=== PATIENT | female | born 1950 | race Caucasian/White ===

== ENCOUNTER 2017-09-26 07:11 | Observation (INO) | payer BC, MEDICARE ==
[~2017-09-26] VITALS: Ht 172.7 cm; Wt 60.0 kg
[~2017-09-26 07:11] MED LIST: CITA-48 PO; DICL75 PO; FOSA70TA PO; ROBA750T3 PO; TIZA4 PO; TRAM50TA PO; XANA0.5T PO
[2017-09-26] MEDS ORDERED: IOHEXOL 350 MG/ML 10 ML VIAL (for RAD DIAG) IVCONTRAST ONE (07:12)
[2017-09-26 07:17] VITALS: BP 156/82; PULSE 100; RESP 16; TEMP 97.5; O2SAT 100
[2017-09-26] MEDS ORDERED: SODIUM CHLOR 0.9% 1000 ML INJ 1,000 ML IV SCH ×2 (07:25→09:30)
[2017-09-26] MEDS ORDERED: SODIUM CHLORIDE 0.9% FLUSH 10 ML FLUSH IV FLUSH PRN ×2 (07:30→15:45)
--- NOTE | 2017-09-26 07:39 | PD ---
HPI Chief Complaint: GI Complaint Time Seen by Provider: 07:24 Travel History International Travel<30 days: No Contact w/Intl Traveler<30days: No Traveled to known affect area: No History of Present Illness HPI This is a 67-year-old female with a history of anxiety disorder, chronic pain, recent UTI, presents here with complaints of dizziness and abdominal swelling and pain. Patient states that over the last 5 days she has noted her belly to be swelling. Patient also reports that she has not had a bowel movement in several days. She denies any fevers, chills. She denies any vomiting. She denies any decreased urine output. She reports that she has been urinating a lot because she was told to drink lots of fluid. There are no other complaints at the time of my examination. PFSH Past Medical History Depression: Yes Diminished Hearing: No Past Surgical History Gynecologic Surgery: Yes (left ovary removal) Tonsillectomy: Yes Social History Alcohol Use: Yes (rarely) Tobacco Use: Yes (1 ppd) Substance Use: No Allergies-Medications (Allergen,Severity, Reaction): Coded Allergies: cephalexin (Verified Allergy, Intermediate, HIVES, 09/26/17) ciprofloxacin (Verified Adverse Reaction, Intermediate, hepatotoxicity, ) Reported Meds & Prescriptions Reported Meds & Active Scripts Active Reported 3 Day Vaginal (Clotrimazole Vaginal) 2% Cream 1 Appl VAGINAL HS Ondansetron (Ondansetron HCl) 8 Mg Tab 8 Mg PO TID Flexeril (Cyclobenzaprine HCl) 10 Mg Tab 10 Mg PO TID Wellbutrin SR 12 HR (Bupropion HCl) 150 Mg Tab 150 Mg PO Q12HR Sumatriptan (Sumatriptan Succinate) 100 Mg Tab 100 Mg PO ONCE PRN If a satisfactory response has not been obtained at 2 hours, a second dose may be administered Alendronate (Alendronate Sodium) 70 Mg Tab 70 Mg PO Q7D Triamcinolone Topical (Triamcinolone Acetonide) 0.1 % Oint 1 Applic TOPICAL BID Review of Systems Except as stated in HPI: all other systems reviewed are Neg General / Constitutional: No: Fever, Chills HENT: Positive: Lightheadedness, No: Headaches Cardiovascular: No: Chest Pain or Discomfort, Palpitations Respiratory: No: Cough, Shortness of Breath Gastrointestinal: Positive: Abdominal Pain, Constipation, No: Nausea, Vomiting , Diarrhea Genitourinary: Positive: Other, No: Frequency, Dysuria Musculoskeletal: No: Weakness, Pain Neurologic: Positive: Dizziness, No: Weakness, Headache, Sensory Disturbance Psychiatric: Positive: Anxiety Physical Exam Narrative GENERAL: Well-developed well-nourished female in no acute respiratory distress. Patient does appear to be pale. SKIN: Focused skin assessment warm/dry. HEAD: Atraumatic. Normocephalic. EYES: No scleral icterus. No injection or drainage. ENT: No nasal bleeding or discharge. Mucous membranes pink and moist. NECK: Trachea midline. No JVD. Supple. CARDIOVASCULAR: Regular rate and rhythm. No murmur appreciated. RESPIRATORY: No accessory muscle use. Clear to auscultation. Breath sounds equal bilaterally. GASTROINTESTINAL: Abdomen soft, slightly distended. There is no rebound or guarding. MUSCULOSKELETAL: No obvious deformities. No clubbing. No cyanosis. No edema. NEUROLOGICAL: Awake and alert. No obvious cranial nerve deficits. Motor grossly within normal limits. Normal speech. PSYCHIATRIC: Appropriate mood and affect; insight and judgment normal. Data Data Last Documented VS Orders Orders Complete Blood Count With Diff (09/26/17 07:25) Comprehensive Metabolic Panel (09/26/17 07:25) Lipase (09/26/17 07:25) Urinalysis - C+S If Indicated (09/26/17 07:25) Iv Access Insert/Monitor (09/26/17 07:25) Ecg Monitoring (09/26/17 07:25) Oximetry (09/26/17 07:25) Sodium Chlor 0.9% 1000 Ml Inj (Ns 1000 M (09/26/17 07:25) Sodium Chloride 0.9% Flush (Ns Flush) (09/26/17 07:30) Sodium Chlorid 0.9% 500 Ml Inj (Ns 500 M (09/26/17 09:30) Tramadol (Ultram) (09/26/17 09:30) Cath For Specimen (09/26/17 11:06) Us Abdomen Gallbladder (09/26/17 11:13) Ct Abd/Pel W Iv Contrast(Rout) (09/26/17 12:11) Oral Contrast - Adult (09/26/17 12:19) Diatrizoate Liq ( Gastroview Liq) (09/26/17 12:44) Iohexol 350 Inj (Omnipaque 350 Inj) (09/26/17 07:12) Morphine Inj (Morphine Inj) (09/26/17 15:45) Levofloxacin 500 Mg Premix Inj (Levaquin (09/26/17 15:45) Metronidazole 500 Mg Inj (Flagyl 500 Mg (09/26/17 15:45) Place In Observation (09/26/17 ) Vital Signs (Adult) Q4H (09/26/17 15:45) Activity Oob Ad Kaitlin (09/26/17 15:45) Sodium Chloride 0.9% Flush (Ns Flush) (09/26/17 15:45) Sodium Chloride 0.9% Flush (Ns Flush) (09/26/17 21:00) Basic Metabolic Panel (Bmp) (09/27/17 06:00) Comprehensive Metabolic Panel (09/27/17 06:00) Enoxaparin Inj (Lovenox Inj) (09/26/17 16:00) Naloxone Inj (Narcan Inj) (09/26/17 15:45) Sennosides (Senokot) (09/26/17 15:45) Morphine Inj (Morphine Inj) (09/26/17 16:00) Consult Gastroenterology (09/26/17 ) Ondansetron Odt (Zofran Odt) (09/26/17 15:45) (Hub Use Only)Inp Phy Cons/Ref (09/26/17 ) Morphine Inj (Morphine Inj) (09/26/17 16:15) Metronidazole 500 Mg Inj (Flagyl 500 Mg (09/27/17 00:00) Levofloxacin 750 Mg Premix Inj (Levaquin (09/27/17 15:00) Admit Order (Ed Use Only) (09/26/17 16:45) Labs Laboratory Tests Test 09/26/17 08:26 09/26/17 10:31 09/26/17 11:00 White Blood Count 11.0 TH/MM3 Red Blood Count 4.33 MIL/MM3 Hemoglobin 13.7 GM/DL Hematocrit 39.0 % Mean Corpuscular Volume 90.1 FL Mean Corpuscular Hemoglobin 31.6 PG Mean Corpuscular Hemoglobin Concent 35.1 % Red Cell Distribution Width 13.6 % Platelet Count 430 TH/MM3 Mean Platelet Volume 7.2 FL Neutrophils (%) (Auto) 68.3 % Lymphocytes (%) (Auto) 12.5 % Monocytes (%) (Auto) 9.9 % Eosinophils (%) (Auto) 8.5 % Basophils (%) (Auto) 0.8 % Neutrophils # (Auto) 7.5 TH/MM3 Lymphocytes # (Auto) 1.4 TH/MM3 Monocytes # (Auto) 1.1 TH/MM3 Eosinophils # (Auto) 0.9 TH/MM3 Basophils # (Auto) 0.1 TH/MM3 CBC Comment DIFF FINAL Differential Comment Blood Urea Nitrogen 11 MG/DL Creatinine 0.50 MG/DL Random Glucose 87 MG/DL Total Protein 6.6 GM/DL Albumin 2.8 GM/DL Calcium Level 8.4 MG/DL Alkaline Phosphatase 565 U/L Aspartate Amino Transf (AST/SGOT) 102 U/L Alanine Aminotransferase (ALT/SGPT) 161 U/L Total Bilirubin 2.0 MG/DL Sodium Level 138 MEQ/L Potassium Level 3.7 MEQ/L Chloride Level 106 MEQ/L Carbon Dioxide Level 22.9 MEQ/L Anion Gap 9 MEQ/L Estimat Glomerular Filtration Rate 124 ML/MIN Iron Level 63 MCG/DL Total Iron Binding Capacity 336 MCG/DL Percent Iron Saturation 18.8 % Ferritin 264 NG/ML Lipase 74 U/L Urine Color YELLOW Urine Turbidity CLEAR Urine pH 6.0 Urine Specific [place] 1.013 Urine Protein NEG mg/dL Urine Glucose (UA) NEG mg/dL Urine Ketones TRACE mg/dL Urine Occult Blood NEG Urine Nitrite NEG Urine Bilirubin NEG Urine Urobilinogen LESS THAN 2.0 MG/DL Urine Leukocyte Esterase NEG Urine RBC LESS THAN 1 /hpf Urine WBC 1 /hpf Urine Squamous Epithelial Cells <1 /hpf Urine Mucus FEW /lpf Microscopic Urinalysis Comment CULT NOT INDICATED MDM Medical Decision Making Medical Screen Exam Complete: Yes Emergency Medical Condition: Yes Differential Diagnosis Constipation versus diverticulitis versus metabolic derangement Narrative Course 67-year-old female with a history of chronic back pain, recent UTI, presents today with complaints of severe abdominal pain. Patient also reports nausea vomiting. The patient is received 2 doses of pain medication and nausea medication. She is still having severe pain. CT scan shows hepatic steatosis and duodenitis. Patient's been started on Levaquin and Flagyl. Given the fact that she has intractable pain she will be admitted under observation. Case was discussed with the admitting physician. She will be made n.p.o. until further discussion with GI. She would likely need an upper endoscopy. Diagnosis Primary Impression: Intractable abdominal pain Additional Impressions: Elevated LFTs Hepatic steatosis Admitting Information Admitting Physician Requests: Observation Scripts Pantoprazole (Pantoprazole) 40 Mg Tab 40 MG PO DAILY for esophagitis/gastritis for 30 Days, #30 TAB Prov: Maddie Reno PA-C 09/29/17 Rob Patterson MD Sep 26, 2017 07:39
[2017-09-26] MEDS ORDERED: CIPR-9 PO (08:05)
[2017-09-26] MEDS ORDERED: ONDA8TAB7 PO (08:05)
[2017-09-26] MEDS ORDERED: LOMO2.5T PO (08:05)
[2017-09-26] MEDS ORDERED: ALEN1TAB48 PO (08:05)
[2017-09-26] MEDS ORDERED: BUPR150CR PO (08:05)
[2017-09-26] MEDS ORDERED: DIPH25CA PO (08:05)
[2017-09-26] MEDS ORDERED: OMEP20TA93 PO (08:05)
[2017-09-26] MEDS ORDERED: CYCL10TA PO (08:05)
[2017-09-26] MEDS ORDERED: TRIAM.1%T TOPICAL (08:05)
[2017-09-26] MEDS ORDERED: CLOT2CRE VAGINAL (08:05)
[2017-09-26] MEDS ORDERED: SUMA100T2 PO (08:05)
[2017-09-26 08:29] VITALS: BP 135/72; PULSE 88; RESP 16; O2SAT 98
[2017-09-26 08:53] LABS: AUTOMATED NEUTROPHIL # 7.5 TH/MM3 (1.8-7.7); BASOPHIL # 0.1 TH/MM3 (0-0.2); BASOPHIL % 0.8 % (0.0-2.0); EOSINOPHIL # 0.9 TH/MM3 (0-0.4); EOSINOPHIL % 8.5 % (0.0-4.0); HEMOGLOBIN 13.7 GM/DL (11.6-15.3); LYMPH % 12.5 % (9.0-44.0); LYMPHOCYTE # 1.4 TH/MM3 (1.0-4.8); MEAN CELL VOLUME 90.1 FL (80.0-100.0); MEAN CORPUSCULAR HEMOGLOBIN 31.6 PG (27.0-34.0); MEAN CORPUSCULAR HGB CONC 35.1 % (32.0-36.0); MEAN PLATELET VOLUME 7.2 FL (7.0-11.0); MONO % 9.9 % (0.0-8.0); MONOCYTE # 1.1 TH/MM3 (0-0.9); NEUT % 68.3 % (16.0-70.0); PLATELET COUNT 430 TH/MM3 (150-450); RED BLOOD COUNT 4.33 MIL/MM3 (4.00-5.30); RED CELL DISTRIBUTION WIDTH 13.6 % (11.6-17.2)
[2017-09-26] MEDS ORDERED: SODIUM CHLORID 0.9% 500 ML INJ 500 ML IV ONE (09:30)
[2017-09-26] MEDS ORDERED: traMADol HCL 50 MG TAB PO ONE (09:30)
[2017-09-26 11:01] LABS: ALKALINE PHOSPHATASE 565 U/L (45-117); ALT (GPT) 161 U/L (10-53); TOTAL PROTEIN 6.6 GM/DL (6.4-8.2)
[2017-09-26 11:05] LABS: ALBUMIN 2.8 GM/DL (3.4-5.0); AST (GOT) 102 U/L (15-37); BICARBONATE 22.9 MEQ/L (21.0-32.0); BLOOD UREA NITROGEN 11 MG/DL (7-18); CALCIUM 8.4 MG/DL (8.5-10.1); CHLORIDE 106 MEQ/L (98-107); GLOMERULAR FILTRATION RATE 124 ML/MIN (>89); GLUCOSE,RANDOM 87 MG/DL (74-106); SODIUM (NA) 138 MEQ/L (136-145)
--- NOTE | 2017-09-26 11:55 | RADRPT ---
EXAM DATE: 09/26/2017 11:49 AM EDT AGE/SEX: 67 years / Female INDICATIONS: Abdominal pain and swelling with nausea. CLINICAL DATA: This is the patient's initial encounter. Patient reports that signs and/or symptoms h ave been present for 4 - 6 days and indicates a pain score of 8/10. MEDICAL/SURGICAL HISTORY: Gastroesophageal reflux disease. Hysterectomy. Tonsillectomy. left ovary removed. UTI. COMPARISON: No prior exams available for comparison. MEASUREMENTS (cm x cm x cm): Liver:__ 16.3 cm length Common Bile Duct:__ 5mm FINDINGS: Liver: Normal echotexture without focal lesion or ductal dilatation. Portal Vein: Normal flow is seen in portal vein. Common Duct: Common bile duct within the normal range in terms of size. No filling defects. Gallbladder: Demonstrates no wall thickening or pericholecystic fluid. No stones visualized. Pancreas: The pancreatic duct is out of the range of normal in terms of size. It reaches a maximum d iameter 4 mm. The pancreas is otherwise unremarkable. No stone or obstructing mass observed. Right Kidney: The right kidney is normal in size and shape. It measures 11.5 x 4.6 x 4.6 cm. No mass or hydronephrosis. Other: None. CONCLUSION: 1. Mild dilatation of the pancreatic duct measuring 4 mm. No obstructing mass or stone observed. Con open claims representative further anatomical evaluation either utilizing CT scan or MRI. Electronically signed by: Horacio Gould MD 09/26/2017 11:53 AM EDT
[2017-09-26 12:05] LABS: BILIRUBIN, URINE NEG (NEG); BLOOD, URINE NEG (NEG); GLUCOSE,URINE NEG (NEG); KETONE, URINE TRACE mg/dL (NEG); MUCUS URINE FEW /lpf (OCC); NITRITE,URINE NEG (NEG); SQUAMOUS EPITHELIAL CELL URINE <1 /hpf (0-5); URINE COLOR YELLOW (YELLW/STRAW); URINE LEUKOCYTE ESTERASE NEG (NEG)
[2017-09-26 12:42] VITALS: BP 119/67; PULSE 94; RESP 18; O2SAT 98
[2017-09-26] MEDS ORDERED: DIATRIZOATE MEGLUM/DIATRIZOATE SOD 9 ML CUP ONE (12:44)
--- NOTE | 2017-09-26 14:43 | RADRPT ---
EXAM DATE: 09/26/2017 2:08 PM EDT AGE/SEX: 67 years / Female INDICATIONS: Abdomen pain and swelling with nausea CLINICAL DATA: This is the patient's initial encounter. Patient reports that signs and symptoms have been present for 4 - 6 days and indicates a pain score of 4/10. MEDICAL/SURGICAL HISTORY: None. . left ovary ORAL CONTRAST: Prescribed oral contrast ingested. RADIATION DOSE: 5.30 CTDI (mGy) COMPARISON: No prior exams available for comparison. TECHNIQUE: Multiple contiguous axial images were obtained through the abdomen and pelvis following b olus infusion of 95 ml Omnipaque 350 (iohexol) nonionic water-soluble contrast as a single exam dos e. Prescribed oral contrast ingested. Using automated exposure control and adjustment of the mA and/ or kV according to patient size, the radiation dose was kept as low as reasonably achievable to obtai n optimal diagnostic quality images. FINDINGS: Lower Lungs: Pronounced emphysematous changes within the lung bases bilaterally. A 6 mm nodule working second hand iorly within the right base. Small hiatal hernia.. Liver: The liver has a homogeneously low density without space-occupying lesion. There is no dilatio n of the biliary tree. Gallbladder is unremarkable. Spleen: Homogeneous density without enlargement. Pancreas: Unremarkable without mass or calcification. Kidneys: Normal in size and shape. No evidence of mass or hydronephrosis. Adrenal Glands: Unremarkable. Aorta: The aorta and proximal iliac vessels are grossly unremarkable without aneurysmal dilation. Bowel/Mesentery: The second portion of the duodenum is fluid-filled and mildly distended without wal l thickening. The remaining bowel loops are normal in caliber. No free air or free fluid. The colon i s stool-filled but normal in caliber. Abdominal Wall: Intact. Retroperitoneum: No evidence of adenopathy in the retrocrural, para-aortic, or deep pelvic regions. Bladder: Contours are smooth. Reproductive Organs: No abnormal masses or calcifications seen. Inguinal: The inguinal region is unremarkable without evidence of adenopathy. Bony Structures: Unremarkable. CONCLUSION: 1. Minimal distention of the second portion of the duodenum without wall thickening or inflammatory change. This could relate to a mild duodenitis. Otherwise, no acute abnormality. 2. Hepatic steatosis. Electronically signed by: Horacio Gould MD 09/26/2017 2:42 PM EDT
[2017-09-26] MEDS ORDERED: metroNIDAZOLE 500 MG INJ 100 ML IV ONE (15:45)
[2017-09-26] MEDS ORDERED: MORPHINE SULFATE 2 MG/ML SYRINGE IV PUSH ONE (15:45)
[2017-09-26] MEDS ORDERED: SENNOSIDES 8.6 MG TAB PO PRN (15:45)
[2017-09-26] MEDS ORDERED: ONDANSETRON ODT 4 MG TAB SL PRN (15:45)
[2017-09-26] MEDS ORDERED: NALOXONE HCL 0.4 MG/ML AMP IV PUSH PRN (15:45)
[2017-09-26] MEDS ORDERED: metroNIDAZOLE 500 MG INJ 100 ML IV SCH ×2 (16:00→16:15)
[2017-09-26] MEDS ORDERED: MORPHINE SULFATE 4 MG/ML INJ IV ONE (16:15)
[2017-09-26] MEDS: LEVOFLOXACIN 500 MG PREMIX INJ 100 ML IV ONE ×2 (16:37→16:43)
[2017-09-26] MEDS: ENOXAPARIN SODIUM 40 MG/0.4 ML SYRINGE SQ SCH (16:39)
--- NOTE | 2017-09-26 17:02 | PD.CONS ---
HPI History of Present Illness This is a 67 year old F with PMH significant for anxiety disorder, chronic pain , recent UTI who presented to the ER today with complaints of dizziness, abdominal pain and swelling. Pt reports abdominal pain began over a week ago, seemed fairly constant, generalized over entire abdomen. Symptoms were fairly manageable, but she went in to see her PCP last Tuesday when noticed her urine became very dark. Her PCP tested her urine, diagnosed her with UTI and sent her home on Ciprofloxacin. Pt reports abdominal swelling since starting Cipro also has not had a BM since starting Cipro, does reports passing flatus. Pt reports acid reflux and heartburn are well controlled with Ranitidine at bedtime, was previously on Omeprazole but has not needed this is a long time. Reports some nausea, denies emesis. Denies any unintentional weight loss. Last EGD and colonoscopy in 1999, reports indication was for Hemoccult positive stool , states normal exam except for hemorrhoids. Denies history of liver issues, new prescription medications except for Cipro previously mentioned. Takes OTC vitamins, but states none of these are new. Occasional ETOH. Smokes 1 PPD. Of note, also takes Diclofenac for pain. Denies family history significant for GI related issues. (Anne-Marie Vyas) PFSH Past Medical History Anxiety disorder Chronic pain Recent UTI Nicotine dependence Past Surgical History Tonsillectomy L ovary removal Colonoscopy EGD (Anne-Marie Vyas) Coded Allergies: cephalexin (Verified Allergy, Intermediate, HIVES, 09/26/17) Social History Smokes 1 PPD Occasional ETOH Denies illicit drug use (Anne-Marie Vyas) Review of Systems Gastrointestinal: COMPLAINS OF: Abdominal pain, Constipation, Nausea, Swelling of Abdomen, DENIES: Black stools, Bloody stools, Diarrhea, Vomiting, Difficulty Swallowing, Odynophagia, Heartburn, Hematemesis (Anne-Marie Vyas) GI Exam Vitals I&O Vital Signs Date Time Temp Pulse Resp B/P (MAP) Pulse Ox O2 Delivery O2 Flow Rate FiO2 09/26/17 12:42 94 18 119/67 (84) 98 Room Air 09/26/17 08:29 88 16 135/72 (93) 98 Room Air 09/26/17 07:52 18 09/26/17 07:17 97.5 100 16 156/82 (106) 100 I/O 09/25/17 09/25/17 09/25/17 09/26/17 09/26/17 09/26/17 07:00 15:00 23:00 07:00 15:00 23:00 Intake Total 1500 ml Output Total 500 ml Balance 1000 ml Intake IV Total 1500 ml Output Urine Total 500 ml # Voids 1 Imaging Last Impressions Abdomen/Pelvis CT 09/26/17 1211 Signed Impressions: CONCLUSION: 1. Minimal distention of the second portion of the duodenum without wall thick ening or inflammatory change. This could relate to a mild duodenitis. Otherwise , no acute abnormality. 2. Hepatic steatosis. Gall Bladder Ultrasound 09/26/17 1113 Signed Impressions: CONCLUSION: 1. Mild dilatation of the pancreatic duct measuring 4 mm. No obstructing mass or stone observed. Consider further anatomical evaluation either utilizing CT s can or MRI. Laboratory Test 09/26/17 08:26 09/26/17 10:31 09/26/17 11:00 White Blood Count 11.0 TH/MM3 Red Blood Count 4.33 MIL/MM3 Hemoglobin 13.7 GM/DL Hematocrit 39.0 % Mean Corpuscular Volume 90.1 FL Mean Corpuscular Hemoglobin 31.6 PG Mean Corpuscular Hemoglobin Concent 35.1 % Red Cell Distribution Width 13.6 % Platelet Count 430 TH/MM3 Mean Platelet Volume 7.2 FL Neutrophils (%) (Auto) 68.3 % Lymphocytes (%) (Auto) 12.5 % Monocytes (%) (Auto) 9.9 % Eosinophils (%) (Auto) 8.5 % Basophils (%) (Auto) 0.8 % Neutrophils # (Auto) 7.5 TH/MM3 Lymphocytes # (Auto) 1.4 TH/MM3 Monocytes # (Auto) 1.1 TH/MM3 Eosinophils # (Auto) 0.9 TH/MM3 Basophils # (Auto) 0.1 TH/MM3 CBC Comment DIFF FINAL Differential Comment Blood Urea Nitrogen 11 MG/DL Creatinine 0.50 MG/DL Random Glucose 87 MG/DL Total Protein 6.6 GM/DL Albumin 2.8 GM/DL Calcium Level 8.4 MG/DL Alkaline Phosphatase 565 U/L Aspartate Amino Transf (AST/SGOT) 102 U/L Alanine Aminotransferase (ALT/SGPT) 161 U/L Total Bilirubin 2.0 MG/DL Sodium Level 138 MEQ/L Potassium Level 3.7 MEQ/L Chloride Level 106 MEQ/L Carbon Dioxide Level 22.9 MEQ/L Anion Gap 9 MEQ/L Estimat Glomerular Filtration Rate 124 ML/MIN Lipase 74 U/L Urine Color YELLOW Urine Turbidity CLEAR Urine pH 6.0 Urine Specific [place] 1.013 Urine Protein NEG mg/dL Urine Glucose (UA) NEG mg/dL Urine Ketones TRACE mg/dL Urine Occult Blood NEG Urine Nitrite NEG Urine Bilirubin NEG Urine Urobilinogen LESS THAN 2.0 MG/DL Urine Leukocyte Esterase NEG Urine RBC LESS THAN 1 /hpf Urine WBC 1 /hpf Urine Squamous Epithelial Cells <1 /hpf Urine Mucus FEW /lpf Microscopic Urinalysis Comment CULT NOT INDICATED Physical Examination HEENT: Normocephalic; atraumatic; (+) icterus CHEST: Even/unlabored CARDIAC: RRR ABDOMEN: Distended, soft, nontender, bowel sounds active EXTREMITIES: No clubbing, cyanosis, or edema. SKIN: Normal; no rash; no jaundice. LEATHER BELT SHAPER: Alert and oriented times three. (Anne-Marie Vyas) Assessment and Plan Plan Assessment: - Abdominal pain and swelling- Reports abdominal pain began over a week ago, went to see her PCP last Tuesday when she noticed her urine became dark, PCP did urine test and gave her a prescription for Ciprofloxacin. Pt began noticing abdominal swelling after starting Cipro. Also reports some nausea, denies emesis. No BM since starting Cipro but does report passing flatus. Last EGD and colonoscopy reportedly in 1999, indication for Hemoccult positive stools, states hemorrhoids, otherwise normal exam - Elevated LFTs (09/26) AST-102 ALT-161 Alk phos-565 T bili-2 Denies personal history and family history of liver issues. Rare ETOH. Only new prescription medication is Ciprofloxacin, this was given after complaints of dark urine. Takes OTC vitamins, denies any other herbs or supplements. Denies illicit drug use. Ct abdomen and pelvis W IV contrast (09/26) Minimal distention of the second portion of the duodenum without wall thickening or inflammatory change. This could relate to a mild duodenitis. Otherwise, no acute abnormality. Hepatic steatosis. US gallbladder (09/26) Mild dilatation of the pancreatic duct measuring 4 mm. No obstructing mass or stone observed. Consider further anatomical evaluation either utilizing CT scan or MRI. Plan: MRCP ? EGD vs ERCP depending on findings Clear liquids today if tolerating NPO after MN in case of need for procedure Liver [place] to rule out other etiologies Monitor labs Further recommendations based on findings of above Pt has been seen and examined by myself and Dr. Plata and this note is written on his behalf (Anne-Marie Vyas) Physician Comments Seen and examined, plan as above. Role out pancreato-biliary disorder, check MRCP. Further recommendations to follow. Thank you. (Allen Plata MD) Anne-Marie Vyas Sep 26, 2017 17:02 Allen Plata MD Sep 26, 2017 17:36
--- NOTE | 2017-09-26 17:28 | HHI.HP ---
[facility] Physician Lobo Hager, Admission Diagnosis intractable abdominal pain, duodenitits, elevated liver enzymes. Diagnoses: (1) Abdominal pain (2) Transaminitis Travel History International Travel<30 Days: No Contact w/Intl Traveler <30 Da: No Traveled to Known Affected Are: No History of Present Illness 67-year-old female with history of incontinence presents to the ER with abdominal pain that has been present for 1 week. Approximately 8 days ago she awoke with dark colored urine and thought she might have urinary tract infection. She did not have abdominal pain at that time. Following days she went and visited with her primary care physician who tested her urine and subsequently placed her on ciprofloxacin twice daily for 8 days. The day after taking Cipro she developed abdominal pain and nausea. She denies any vomiting. She continued to take ciprofloxacin and began to develop pain in her joints and tendons. The abdominal pain became worse and this morning when she awoke her decided she needed to be in the ER instead of following up with her primary care physician. Lab workup thus far shows elevated liver enzymes. Imaging shows mild dilated bile duct without evidence of gallstones. CT shows inflamed duodenum and hepatic steatosis. Patient denies any new medications aside from Cipro. Review of Systems Constitutional: DENIES: Diaphoretic episodes, Fatigue, Fever, Weight gain, Weight loss, Chills Endocrine: DENIES: Abnorml menstrual pattern, Heat/cold intolerance, Polydipsia , Polyuria Ears, nose, mouth, throat: DENIES: Tinnitus, Hearing loss, Vertigo, Nasal discharge, Oral lesions Respiratory: DENIES: Apneas, Cough, Snoring, Wheezing, Hemoptysis Cardiovascular: DENIES: Chest pain, Palpitations, Syncope, Dyspnea on Exertion Gastrointestinal: COMPLAINS OF: Nausea, DENIES: Abdominal pain, Black stools, Bloody stools, Constipation, Diarrhea, Vomiting Genitourinary: DENIES: Abnormal vaginal bleeding, Dysmenorrhea, Dyspareunia, Sexual dysfunction Musculoskeletal: COMPLAINS OF: Joint pain, Muscle aches, Stiffness, DENIES: Joint Swelling, Back pain Integumentary: COMPLAINS OF: Abnormal pigmentation, DENIES: Pruritus, Rash, Nail changes, Breast masses Hematologic/lymphatic: DENIES: Bruising, Lymphadenopathy Immunologic/allergic: DENIES: Eczema, Urticaria Neurologic: DENIES: Abnormal gait, Headache, Localized weakness, Paresthesias Psychiatric: COMPLAINS OF: Anxiety, DENIES: Confusion, Mood changes, Depression , Hallucinations, Agitation Past Family Social History Past Medical History Anxiety disorder Lumbago Incontinence Recent UTI Nicotine dependence GERD Past Surgical History Tonsillectomy L ovary removal Colonoscopy EGD Allergies: Coded Allergies: cephalexin (Verified Allergy, Intermediate, HIVES, 09/26/17) Family History GERD Social History Smokes 1 PPD Occasional ETOH Denies illicit drug use Physical Exam Vital Signs Vital Signs Date Time Temp Pulse Resp B/P (MAP) Pulse Ox O2 Delivery O2 Flow Rate FiO2 09/26/17 12:42 94 18 119/67 (84) 98 Room Air 09/26/17 08:29 88 16 135/72 (93) 98 Room Air 09/26/17 07:52 18 09/26/17 07:17 97.5 100 16 156/82 (106) 100 Physical Exam GENERAL: This is a well-nourished, well-developed patient, in no apparent distress. SKIN: Mild jaundice and cheeks, ecchymoses or lesions. Cool and dry. HEAD: Atraumatic. Normocephalic. No temporal or scalp tenderness. EYES: Pupils equal round and reactive. Extraocular motions intact. Mild scleral icterus. No injection or drainage. ENT: Nose without bleeding, purulent drainage or septal hematoma. Throat without erythema, tonsillar hypertrophy or exudate. Uvula midline. Airway patent. NECK: Trachea midline. No JVD or lymphadenopathy. Supple, nontender, no meningeal signs. CARDIOVASCULAR: Regular rate and rhythm without murmurs, gallops, or rubs. RESPIRATORY: Clear to auscultation. Breath sounds equal bilaterally. No wheezes , rales, or rhonchi. GASTROINTESTINAL: Abdomen soft, non-tender, nondistended. No hepato-splenomegaly , or palpable masses. No guarding. MUSCULOSKELETAL: Extremities without clubbing, cyanosis, or edema. No joint tenderness, effusion, or edema noted. No calf tenderness. Negative Homans sign bilaterally. NEUROLOGICAL: Awake and alert. Cranial nerves II through XII intact. Motor and sensory grossly within normal limits. Five out of 5 muscle strength in all muscle groups. Normal speech. Laboratory Laboratory Tests Test 09/26/17 08:26 09/26/17 10:31 09/26/17 11:00 White Blood Count 11.0 Red Blood Count 4.33 Hemoglobin 13.7 Hematocrit 39.0 Mean Corpuscular Volume 90.1 Mean Corpuscular Hemoglobin 31.6 Mean Corpuscular Hemoglobin Concent 35.1 Red Cell Distribution Width 13.6 Platelet Count 430 Mean Platelet Volume 7.2 Neutrophils (%) (Auto) 68.3 Lymphocytes (%) (Auto) 12.5 Monocytes (%) (Auto) 9.9 Eosinophils (%) (Auto) 8.5 Basophils (%) (Auto) 0.8 Neutrophils # (Auto) 7.5 Lymphocytes # (Auto) 1.4 Monocytes # (Auto) 1.1 Eosinophils # (Auto) 0.9 Basophils # (Auto) 0.1 CBC Comment DIFF FINAL Differential Comment Blood Urea Nitrogen 11 Creatinine 0.50 Random Glucose 87 Total Protein 6.6 Albumin 2.8 Calcium Level 8.4 Alkaline Phosphatase 565 Aspartate Amino Transf (AST/SGOT) 102 Alanine Aminotransferase (ALT/SGPT) 161 Total Bilirubin 2.0 Sodium Level 138 Potassium Level 3.7 Chloride Level 106 Carbon Dioxide Level 22.9 Anion Gap 9 Estimat Glomerular Filtration Rate 124 Lipase 74 Urine Color YELLOW Urine Turbidity CLEAR Urine pH 6.0 Urine Specific Arminto 1.013 Urine Protein NEG Urine Glucose (UA) NEG Urine Ketones TRACE Urine Occult Blood NEG Urine Nitrite NEG Urine Bilirubin NEG Urine Urobilinogen LESS THAN 2.0 Urine Leukocyte Esterase NEG Urine RBC LESS THAN 1 Urine WBC 1 Urine Squamous Epithelial Cells <1 Urine Mucus FEW Microscopic Urinalysis Comment CULT NOT INDICATED Result Diagram: 09/26/17 0809/26/17 1031 Septic Shock Reassessment Septic shock perfusion: reassessment completed Caprini VTE Risk Assessment Caprini VTE Risk Assessment: Mod/High Risk (score >= 2) Caprini Risk Assessment Model Point Value = 1 Point Value = 2 Point Value = 3 Point Value = 5 Age 41-60 Minor surgery BMI > 25 kg/m2 Swollen legs Varicose veins or History of unexplained or recurrent spontaneous Oral contraceptives or hormone replacement Sepsis (< 1 month) Serious lung disease, including pneumonia (< 1 month) Abnormal pulmonary function Acute myocardial infarction Congestive heart failure (< 1 month) History of inflammatory bowel disease Medical patient at bed rest Age 61-74 Arthroscopic surgery Major open surgery (> 45 min) Laparoscopic surgery (> 45 min) Malignancy Confined to bed (> 72 hours) Immobilizing plaster cast Central venous access Age >= 75 History of VTE Family history of VTE Factor V Leiden Prothrombin [id number] Lupus anticoagulant Anticardiolipin antibodies Elevated serum homocysteine Heparin-induced thrombocytopenia Other congenital or acquired thrombophilia Stroke (< 1 month) Elective arthroplasty Hip, pelvis, or leg fracture Acute spinal cord injury (< 1 month) Prophylaxis Regimen Total Risk Factor Score Risk Level Prophylaxis Regimen 0-1 Low Early ambulation 2 Moderate Order ONE of the following: *Sequential Compression Device (SCD) *Heparin 5000 units SQ BID 3-4 Higher Order ONE of the following medications: *Heparin 5000 units SQ TID *Enoxaparin/Lovenox 40 mg SQ daily (WT < 150 kg, CrCl > 30 mL/min) *Enoxaparin/Lovenox 30 mg SQ daily (WT < 150 kg, CrCl > 10-29 mL/min) *Enoxaparin/Lovenox 30 mg SQ BID (WT < 150 kg, CrCl > 30 mL/min) AND/OR *Sequential Compression Device (SCD) 5 or more Highest Order ONE of the following medications: *Heparin 5000 units SQ TID (Preferred with Epidurals) *Enoxaparin/Lovenox 40 mg SQ daily (WT < 150 kg, CrCl > 30 mL/min) *Enoxaparin/Lovenox 30 mg SQ daily (WT < 150 kg, CrCl > 10-29 mL/min) *Enoxaparin/Lovenox 30 mg SQ BID (WT < 150 kg, CrCl > 30 mL/min) AND *Sequential Compression Device (SCD) Assessment and Plan Problem List: (1) Abdominal pain ICD Code: R10.9 - Unspecified abdominal pain (2) Transaminitis ICD Code: R74.0 - Nonspecific elevation of levels of transaminase and lactic acid dehydrogenase [LDH] Assessment and Plan Abdominal pain, transaminitis Findings so far point to hepatic steatosis and duodenitis Timing is suspicious for ciprofloxacin reaction, patient also has joint pain Patient may have clears currently, n.p.o. after midnight for possible procedure Hold ciprofloxacin, Levaquin canceled Follow liver enzyme trends with a.m. labs Gastroenterology ordered MRI Appreciate gastroenterology consult Recent urinary tract infection Urinalysis in the ER is negative Patient has had 7 days of ciprofloxacin which is more than sufficient treatment for an uncomplicated UTI Discontinue ciprofloxacin, cancel Levaquin h/o GERD Continue omeprazole h/o lumbago Continue cyclobenzaprine, morphine added for abdominal pain should cross cover h/o anxiety Continue bupropion, alprazolam as needed DVT prophylaxis Loveolivia[employer] Abhijit Marcial MD Sep 26, 2017 17:28
[2017-09-26] MEDS: CYCLOBENZAPRINE HCL 10 MG TAB PO SCH (17:41)
[2017-09-26 19:26] LABS: FERRITIN 264 NG/ML (8-252)
[2017-09-26 19:31] LABS: % SATURATION IRON PROFILE 18.8 % (20-50); IRON (FE) 63 MCG/DL (50-170); TOTAL IRON BINDING CAPACITY 336 MCG/DL (250-450)
[2017-09-26 19:37] VITALS: BP 119/64; PULSE 92; RESP 17; TEMP 97.4; O2SAT 96
[2017-09-26] MEDS: buPROPion HCL 150 MG SUSTAINED RELEASE TAB PO SCH (20:16)
[2017-09-26] MEDS: SODIUM CHLORIDE 0.9% FLUSH 10 ML FLUSH IV FLUSH SCH (20:16)
[2017-09-26] MEDS: MORPHINE SULFATE 4 MG/ML INJ IV PUSH PRN (23:28)
[2017-09-26] MEDS: metroNIDAZOLE 500 MG INJ 100 ML IV SCH (23:29)
[2017-09-27] VITALS (12 sets, daily range): BP systolic 130–151; BP diastolic 60–81; PULSE 80–113; RESP 16–20; TEMP 97.7–98.8; O2SAT 92–97
[2017-09-27] MEDS: MORPHINE SULFATE 4 MG/ML INJ IV PUSH PRN ×4 (05:54→23:35)
[2017-09-27 07:56] LABS: ALBUMIN 2.8 GM/DL (3.4-5.0); AST (GOT) 74 U/L (15-37); BICARBONATE 24.3 MEQ/L (21.0-32.0); BLOOD UREA NITROGEN 7 MG/DL (7-18); CALCIUM 8.5 MG/DL (8.5-10.1); CHLORIDE 106 MEQ/L (98-107); CREATININE 0.47 MG/DL (0.50-1.00); GLOMERULAR FILTRATION RATE 133 ML/MIN (>89); GLUCOSE,RANDOM 89 MG/DL (74-106); SODIUM (NA) 141 MEQ/L (136-145)
[2017-09-27 07:57] LABS: ALT (GPT) 128 U/L (10-53)
[2017-09-27 07:59] LABS: ALKALINE PHOSPHATASE 492 U/L (45-117); TOTAL BILIRUBIN ADULT 1.6 MG/DL (0.2-1.0); TOTAL PROTEIN 6.4 GM/DL (6.4-8.2)
[2017-09-27] MEDS: CYCLOBENZAPRINE HCL 10 MG TAB PO SCH ×3 (08:55→17:05)
[2017-09-27] MEDS: SODIUM CHLORIDE 0.9% FLUSH 10 ML FLUSH IV FLUSH SCH ×2 (08:55→20:23)
[2017-09-27] MEDS: metroNIDAZOLE 500 MG INJ 100 ML IV SCH ×2 (08:55→15:39)
[2017-09-27] MEDS: PANTOPRAZOLE SOD 20 MG DELAYED RELEASE TAB PO SCH (08:55)
[2017-09-27] MEDS: buPROPion HCL 150 MG SUSTAINED RELEASE TAB PO SCH ×2 (08:56→20:23)
[2017-09-27] MEDS ORDERED: NON-FORMULARY DRUG (Omeprazole 20 MG) PO SCH (09:00)
[2017-09-27] MEDS ORDERED: POTASSIUM CHLORIDE 20 MEQ CONTROLLED RELEASE TAB PO ONE (09:00)
--- NOTE | 2017-09-27 09:29 | RADRPT ---
EXAM DATE: 09/27/2017 9:00 AM EDT AGE/SEX: 67 years / Female INDICATIONS: Obstruction. CLINICAL DATA: This is the patient's initial encounter. Patient reports that signs and symptoms have been present for 3 days and indicates a pain score of 3/10. MEDICAL/SURGICAL HISTORY: None. Tonsillectomy. Hysterectomy. COMPARISON: No prior exams available for comparison. TECHNIQUE: Multiplanar, multisequence images of the abdomen were obtained without contrast including dedicated cholangiographic images. FINDINGS: Liver: The liver is homogeneous and normal in signal intensity with no focal defects. Intrahepatic Bile Ducts: There is no intrahepatic biliary ductal dilatation. Common Bile Duct: The common bile duct is normal in caliber (6 mm). No filling defects or obstructi ng lesions are identified. Gallbladder: The gallbladder is normal with no evidence for cholelithiasis, gallbladder wall thicken ing, or pericholecystic fluid. Pancreas: The pancreas appears normal in signal with no focal parenchymal abnormalities. The pancrea tic duct is normal in caliber with no filling defects, or obstructing lesions identified. CONCLUSION: 1. Negative MRCP non contrast. 2. No evidence of biliary obstructive disease, cholelithiasis or choledocholithiasis. Electronically signed by: Gilberto Reveles MD 09/27/2017 9:28 AM EDT
[2017-09-27] MEDS ORDERED: PNEUMOCOCCAL POLYVALENT INJ 25 MCG/0.5 ML SYR IM ONE (10:00)
--- NOTE | 2017-09-27 11:49 | HHI.PR ---
Subjective Remarks Follow up for transaminitis, abdominal pain. The patient reports continued constant right upper abdominal pain with radiation around to the right flank; unchanged compared to yesterday. Denies any nausea or vomiting. Denies any urinary complaints including no dysuria or increased urinary frequency/urgency. Denies fevers/chills. Denies any other medical complaints at this time. Objective Vitals Vital Signs Date Time Temp Pulse Resp B/P (MAP) Pulse Ox O2 Delivery O2 Flow Rate FiO2 09/27/17 11:46 97.8 86 16 132/62 (85) 92 09/27/17 09:06 97.7 80 18 151/80 (103) 97 09/27/17 07:32 92 09/27/17 04:48 98.0 89 18 131/81 (98) 97 09/27/17 00:21 90 09/27/17 00:16 98.2 93 16 130/63 (85) 95 09/26/17 19:37 97.4 92 17 119/64 (82) 96 09/26/17 17:24 09/26/17 12:42 94 18 119/67 (84) 98 Room Air I/O 09/26/17 09/26/17 09/26/17 09/27/17 09/27/17 09/27/17 07:00 15:00 23:00 07:00 15:00 23:00 Intake Total 1500 ml 100 ml 100 ml Output Total 500 ml Balance 1000 ml 100 ml 100 ml Intake IV Total 1500 ml 100 ml 100 ml Output Urine Total 500 ml # Voids 1 1 3 # Bowel Movements 1 Result Diagram: 09/26/17 0826 09/27/17 0636 Imaging Last Impressions Cholangiopancreatography MRI 09/27/17 0000 Signed Impressions: CONCLUSION: 1. Negative MRCP non contrast. 2. No evidence of biliary obstructive disease, cholelithiasis or choledocholit hiasis. Abdomen/Pelvis CT 09/26/17 1211 Signed Impressions: CONCLUSION: 1. Minimal distention of the second portion of the duodenum without wall thick ening or inflammatory change. This could relate to a mild duodenitis. Otherwise , no acute abnormality. 2. Hepatic steatosis. Gall Bladder Ultrasound 09/26/17 1113 Signed Impressions: CONCLUSION: 1. Mild dilatation of the pancreatic duct measuring 4 mm. No obstructing mass or stone observed. Consider further anatomical evaluation either utilizing CT s can or MRI. Objective Remarks GENERAL: Well-nourished, well-developed female patient in NAD. SKIN: Warm and dry. No rash. HEENT: Normocephalic. Atraumatic. Pupils equal and round. Mucous membranes pink and moist. CARDIOVASCULAR: Regular rate and rhythm. No murmur appreciated. RESPIRATORY: No accessory muscle use. Clear to auscultation. Breath sounds equal bilaterally. GASTROINTESTINAL: Abdomen soft, nondistended, RUQ and right flank TTP. Normoactive bowel sounds x4. MUSCULOSKELETAL: No obvious deformities. Extremities without clubbing, cyanosis , or edema. NEUROLOGICAL: Awake and alert. No obvious cranial nerve deficits. Motor grossly within normal limits. Moving all extremities spontaneously. Normal speech. PSYCHIATRIC: Appropriate mood and affect; insight and judgment normal. Medications and IVs Current Medications Medications (Trade) Dose Ordered Sig/Vicki Route Start Time Stop Time Status Last Admin (NS Flush) 2 ml UNSCH PRN IV FLUSH 09/26/17 15:45 (NS Flush) 2 ml BID IV FLUSH 09/26/17 21:00 09/27/17 08:55 (Zofran Odt) 4 mg Q6H PRN SL 09/26/17 15:45 (Lovenox Inj) 40 mg Q24H SQ 09/26/17 16:00 09/27/17 15:39 (Narcan Inj) 0.4 mg UNSCH PRN IV PUSH 09/26/17 15:45 (Senokot) 17.2 mg Q12H PRN PO 09/26/17 15:45 (Morphine Inj) 2 mg Q3H PRN IV PUSH 09/26/17 16:00 09/27/17 11:57 Metronidazole 100 ml @ 100 mls/hr Q8H IV 09/27/17 00:00 09/27/17 15:39 (Wellbutrin Sr) 150 mg Q12HR PO 09/26/17 21:00 09/27/17 08:56 (Flexeril) 10 mg TID PO 09/26/17 18:00 09/27/17 12:07 (Protonix) 20 mg DAILY PO 09/27/17 09:00 09/27/17 08:55 Lactated Ringer's 1,000 ml @ 30 mls/hr Q24H PRN IV 09/27/17 15:45 09/30/17 15:44 Sodium Chloride 500 ml @ 30 mls/hr [id number] PRN IV 09/27/17 15:45 09/30/17 15:44 (Lopressor) 25 mg [facility] [employer] PRN PO 09/27/17 15:45 09/30/17 15:44 (Betadine 5% Antisepsis Kit) 1 applic [facility] PRN EACH NARE 09/27/17 15:45 09/30/17 15:44 (Chlorhexidine 2% Cloth) 3 pack [facility] PRN TOPICAL 09/27/17 15:45 09/30/17 15:44 A/P Problem List: (1) Abdominal pain ICD Code: R10.9 - Unspecified abdominal pain (2) Transaminitis ICD Code: R74.0 - Nonspecific elevation of levels of transaminase and lactic acid dehydrogenase [LDH] Assessment and Plan 67-year-old female with history of urinary incontinence, anxiety, GERD, presents with a one-week history of abdominal pain. Recently diagnosed with UTI as outpatient, has been on ciprofloxacin 8 days. Transaminitis with Abdominal Pain: unclear etiology. Possibly reaction to ciprofloxacin. Also evidence of hepatic steatosis and possible duodenitis. -CT abdomen/pelvis reviewed, shows minimal distention of the second portion of the duodenum without wall thickening or inflammatory change; could relate to mild duodenitis, also shows hepatic steatosis -GB U/S shows mild dilatation of the pancreatic duct measuring 4 mm; no obstructing mass or stone -MRCP reviewed, unremarkable, no evidence of biliary obstructive disease, cholelithiasis, or choledocholithiasis -GI consulted, appreciated assistance -Liver w/up in progress, hepatitis panel negative -Plan for EGD tomorrow 09/28 -Full liquid diet for now -Monitor LFTs, trending down Recent UTI: Has completed over 1 week treatment of ciprofloxacin -Repeat UA unremarkable -Discontinued antibiotics GERD: Chronic -Continue PPI Lumbago: Chronic -Continue Flexeril prn -IV morphine as needed Anxiety: Chronic -Continue patient's home meds including bupropion and Xanax as needed Hypokalemia: K 3.0, suspect secondary to decreased oral intake -give po KCl replacement -repeat labs in am DVT prophylaxis: teds/SCDs; holding Lovenox with upcoming procedure Discharge Planning Discharge pending EGD tomorrow. Further disposition to follow. Await GI clearance. Maddie Reno PA-C Sep 27, 2017 11:49 am
[2017-09-27] MEDS ORDERED: LEVOFLOXACIN 750 MG PREMIX INJ 150 ML IV SCH (15:00)
--- NOTE | 2017-09-27 15:14 | HHI.GIFU ---
Subjective Remarks Pt sitting on side of bed Still having abdominal pain Denies nausea, vomiting Also having a pain in her right lower back (Anne-Marie Vyas) Objective Vitals I&O Vital Signs Date Time Temp Pulse Resp B/P (MAP) Pulse Ox O2 Delivery O2 Flow Rate FiO2 09/27/17 11:46 97.8 86 16 132/62 (85) 92 09/27/17 11:37 99 09/27/17 09:06 97.7 80 18 151/80 (103) 97 09/27/17 07:32 92 09/27/17 04:48 98.0 89 18 131/81 (98) 97 09/27/17 00:21 90 09/27/17 00:16 98.2 93 16 130/63 (85) 95 09/26/17 19:37 97.4 92 17 119/64 (82) 96 09/26/17 17:24 I/O 09/26/17 09/26/17 09/26/17 09/27/17 09/27/17 09/27/17 07:00 15:00 23:00 07:00 15:00 23:00 Intake Total 1500 ml 100 ml 100 ml Output Total 500 ml Balance 1000 ml 100 ml 100 ml Intake IV Total 1500 ml 100 ml 100 ml Output Urine Total 500 ml # Voids 1 1 3 # Bowel Movements 1 Laboratory Laboratory Tests Test 09/26/17 20:50 09/26/17 21:02 09/27/17 06:36 Tumor Marker Alpha Fetoprotein 3.5 Hepatitis A IgM Antibody NONREACTIVE Hepatitis B Surface Antigen NONREACTIVE Hepatitis B Core IgM Antibody NONREACTIVE Hepatitis C IgG Antibody NONREACTIVE Blood Urea Nitrogen 7 Creatinine 0.47 Random Glucose 89 Total Protein 6.4 Albumin 2.8 Calcium Level 8.5 Alkaline Phosphatase 492 Aspartate Amino Transf (AST/SGOT) 74 Alanine Aminotransferase (ALT/SGPT) 128 Total Bilirubin 1.6 Sodium Level 141 Potassium Level 3.0 Chloride Level 106 Carbon Dioxide Level 24.3 Anion Gap 11 Estimat Glomerular Filtration Rate 133 Imaging Last Impressions Cholangiopancreatography MRI 09/27/17 0000 Signed Impressions: CONCLUSION: 1. Negative MRCP non contrast. 2. No evidence of biliary obstructive disease, cholelithiasis or choledocholit hiasis. Abdomen/Pelvis CT 09/26/17 1211 Signed Impressions: CONCLUSION: 1. Minimal distention of the second portion of the duodenum without wall thick ening or inflammatory change. This could relate to a mild duodenitis. Otherwise , no acute abnormality. 2. Hepatic steatosis. Gall Bladder Ultrasound 09/26/17 1113 Signed Impressions: CONCLUSION: 1. Mild dilatation of the pancreatic duct measuring 4 mm. No obstructing mass or stone observed. Consider further anatomical evaluation either utilizing CT s can or MRI. Physical Exam HEENT: Normocephalic; atraumatic CHEST: Even/unlabored CARDIAC: RRR ABDOMEN: Mildly distended, soft, nontender, bowel sounds active EXTREMITIES: No clubbing, cyanosis, or edema. SKIN: Normal; no rash; no jaundice. BUSINESS SERVICES ADMINISTRATOR: Alert and oriented times three. (Anne-Marie Vyas) Assessment and Plan Plan Assessment: - Abdominal pain and swelling- Reports abdominal pain began over a week ago, went to see her PCP last Tuesday when she noticed her urine became dark, PCP did urine test and gave her a prescription for Ciprofloxacin. Pt began noticing abdominal swelling after starting Cipro. Also reports some nausea, denies emesis. No BM since starting Cipro but does report passing flatus. Last EGD and colonoscopy reportedly in 1999, indication for Hemoccult positive stools, states hemorrhoids, otherwise normal exam - Elevated LFTs (09/26) AST-102 ALT-161 Alk phos-565 T bili-2 Denies personal history and family history of liver issues. Rare ETOH. Only new prescription medication is Ciprofloxacin, this was given after complaints of dark urine. Takes OTC vitamins, denies any other herbs or supplements. Denies illicit drug use. Ct abdomen and pelvis W IV contrast (09/26) Minimal distention of the second portion of the duodenum without wall thickening or inflammatory change. This could relate to a mild duodenitis. Otherwise, no acute abnormality. Hepatic steatosis. US gallbladder (09/26) Mild dilatation of the pancreatic duct measuring 4 mm. No obstructing mass or stone observed. Consider further anatomical evaluation either utilizing CT scan or MRI. (09/27) LFTs trending down some today. MRCP noted MRCP --> Negative MRCP non contrast. No evidence of biliary obstructive disease, cholelithiasis or choledocholithiasis. Pt still having abdominal pain although improved some since yesterday. Denies nausea and vomiting. Plan: EGD tomorrow Obtain consent NPO after MN Full liquid diet Liver S[place] pending Monitor labs Further recommendations based on findings of above Pt has been seen and examined by myself and Dr. Plata and this note is written on his behalf (Anne-Marie Vyas) Physician Comments Seen and examined with Anne-Marie. Consent obtained for EGD tomorrow. Further recommendations to follow. (Allen Plata MD) Anne-Marie Vyas Sep 27, 2017 15:14 Allen Plata MD Sep 27, 2017 23:27
[2017-09-27] MEDS: ENOXAPARIN SODIUM 40 MG/0.4 ML SYRINGE SQ SCH (15:39)
[2017-09-27] MEDS ORDERED: CHLORHEXIDINE GLUCONATE 2 % 1 PACK (2 CLOTHS) TOPICAL PRN (15:45)
[2017-09-27] MEDS ORDERED: SODIUM CHLORID 0.9% 500 ML IV PRN (15:45)
[2017-09-27] MEDS ORDERED: LACTATED RINGER'S 1000 ML IV PRN (15:45)
[2017-09-27] MEDS ORDERED: METOPROLOL TARTRATE 25 MG TAB PO PRN (15:45)
[2017-09-27] MEDS ORDERED: POVIDONE IODINE 5% (ANTISEPSIS KIT) 4 APPLICATIONS EACH NARE PRN (15:45)
[2017-09-28] VITALS (10 sets, daily range): BP systolic 119–143; BP diastolic 57–77; PULSE 87–98; RESP 16–17; TEMP 98–98.5; O2SAT 94–98
[2017-09-28] MEDS: MORPHINE SULFATE 4 MG/ML INJ IV PUSH PRN ×2 (04:44→16:04)
[2017-09-28 05:06] LABS: AUTOMATED NEUTROPHIL # 6.7 TH/MM3 (1.8-7.7); BASOPHIL # 0.1 TH/MM3 (0-0.2); BASOPHIL % 1.2 % (0.0-2.0); EOSINOPHIL # 0.6 TH/MM3 (0-0.4); EOSINOPHIL % 6.5 % (0.0-4.0); HEMATOCRIT 36.2 % (35.0-46.0); HEMOGLOBIN 12.6 GM/DL (11.6-15.3); LYMPH % 13.9 % (9.0-44.0); LYMPHOCYTE # 1.4 TH/MM3 (1.0-4.8); MEAN CELL VOLUME 90.7 FL (80.0-100.0); MEAN CORPUSCULAR HEMOGLOBIN 31.4 PG (27.0-34.0); MEAN CORPUSCULAR HGB CONC 34.6 % (32.0-36.0); MONO % 11.5 % (0.0-8.0); MONOCYTE # 1.1 TH/MM3 (0-0.9); NEUT % 66.9 % (16.0-70.0); PLATELET COUNT 504 TH/MM3 (150-450); RED BLOOD COUNT 3.99 MIL/MM3 (4.00-5.30); RED CELL DISTRIBUTION WIDTH 13.8 % (11.6-17.2)
[2017-09-28 05:12] LABS: ALBUMIN 2.9 GM/DL (3.4-5.0); ALT (GPT) 104 U/L (10-53); AST (GOT) 45 U/L (15-37); BICARBONATE 24.7 MEQ/L (21.0-32.0); BLOOD UREA NITROGEN 10 MG/DL (7-18); CALCIUM 8.4 MG/DL (8.5-10.1); CHLORIDE 107 MEQ/L (98-107); CREATININE 0.45 MG/DL (0.50-1.00); GLOMERULAR FILTRATION RATE 140 ML/MIN (>89); GLUCOSE,RANDOM 97 MG/DL (74-106); MAGNESIUM 2.2 MG/DL (1.5-2.5); SODIUM (NA) 143 MEQ/L (136-145)
[2017-09-28 05:14] LABS: ALKALINE PHOSPHATASE 431 U/L (45-117); TOTAL BILIRUBIN ADULT 1.3 MG/DL (0.2-1.0); TOTAL PROTEIN 6.6 GM/DL (6.4-8.2)
[2017-09-28] MEDS ORDERED: POTASSIUM CHLORIDE 20 MEQ CONTROLLED RELEASE TAB PO ONE (07:45)
[2017-09-28] MEDS: CYCLOBENZAPRINE HCL 10 MG TAB PO SCH ×3 (08:17→17:49)
[2017-09-28] MEDS: SODIUM CHLORIDE 0.9% FLUSH 10 ML FLUSH IV FLUSH SCH ×2 (08:17→21:54)
[2017-09-28] MEDS: PANTOPRAZOLE SOD 20 MG DELAYED RELEASE TAB PO SCH (08:17)
[2017-09-28] MEDS: buPROPion HCL 150 MG SUSTAINED RELEASE TAB PO SCH ×2 (08:17→21:54)
--- NOTE | 2017-09-28 08:37 | HHI.PR ---
Subjective Remarks Follow up for transaminitis, abdominal pain. The patient reports continue right sided abdominal pain with radiation around to the back, not much improved compared to yesterday. She reports occasional nausea but no vomiting. She complains of some acid reflux overnight. Denies fevers/chills. Had a soft nonbloody BM last night. She has no other medical complaints at this time. Objective Vitals Vital Signs Date Time Temp Pulse Resp B/P (MAP) Pulse Ox O2 Delivery O2 Flow Rate FiO2 09/28/17 08:14 98.0 98 16 121/68 (85) 94 09/28/17 03:47 98.5 93 17 119/68 (85) 95 09/28/17 02:37 95 09/27/17 23:43 98.4 92 16 142/64 (90) 97 09/27/17 20:01 97 09/27/17 19:31 98.4 105 17 130/60 (83) 94 09/27/17 17:28 18 09/27/17 16:21 104 09/27/17 16:19 98.8 113 20 137/76 (96) 94 09/27/17 11:46 97.8 86 16 132/62 (85) 92 09/27/17 11:37 99 09/27/17 09:06 97.7 80 18 151/80 (103) 97 I/O 09/27/17 09/27/17 09/27/17 09/28/17 09/28/17 09/28/17 07:00 15:00 23:00 07:00 15:00 23:00 Intake Total 100 ml 100 ml Balance 100 ml 100 ml Intake IV Total 100 ml 100 ml # Voids 3 # Bowel Movements 1 Result Diagram: 09/28/17 0407 09/28/17 0407 Imaging Last Impressions Cholangiopancreatography MRI 09/27/17 0000 Signed Impressions: CONCLUSION: 1. Negative MRCP non contrast. 2. No evidence of biliary obstructive disease, cholelithiasis or choledocholit hiasis. Abdomen/Pelvis CT 09/26/17 1211 Signed Impressions: CONCLUSION: 1. Minimal distention of the second portion of the duodenum without wall thick ening or inflammatory change. This could relate to a mild duodenitis. Otherwise , no acute abnormality. 2. Hepatic steatosis. Gall Bladder Ultrasound 09/26/17 1113 Signed Impressions: CONCLUSION: 1. Mild dilatation of the pancreatic duct measuring 4 mm. No obstructing mass or stone observed. Consider further anatomical evaluation either utilizing CT s can or MRI. Objective Remarks GENERAL: Well-nourished, well-developed female patient in NAD. SKIN: Warm and dry. No rash. HEENT: Normocephalic. Atraumatic. Pupils equal and round. Mucous membranes pink and moist. CARDIOVASCULAR: Regular rate and rhythm. No murmur appreciated. RESPIRATORY: No accessory muscle use. Clear to auscultation. Breath sounds equal bilaterally. GASTROINTESTINAL: Abdomen soft, nondistended, RUQ and right flank TTP. Normoactive bowel sounds x4. MUSCULOSKELETAL: No obvious deformities. Extremities without clubbing, cyanosis , or edema. NEUROLOGICAL: Awake and alert. No obvious cranial nerve deficits. Motor grossly within normal limits. Moving all extremities spontaneously. Normal speech. PSYCHIATRIC: Appropriate mood and affect; insight and judgment normal. Medications and IVs Current Medications Medications (Trade) Dose Ordered Sig/Vicki Route Start Time Stop Time Status Last Admin (NS Flush) 2 ml UNSCH PRN IV FLUSH 09/26/17 15:45 (NS Flush) 2 ml BID IV FLUSH 09/26/17 21:00 09/28/17 08:17 (Zofran Odt) 4 mg Q6H PRN SL 09/26/17 15:45 09/27/17 23:50 (Lovenox Inj) 40 mg Q24H SQ 09/26/17 16:00 Future Hold 09/27/17 15:39 (Narcan Inj) 0.4 mg UNSCH PRN IV PUSH 09/26/17 15:45 (Senokot) 17.2 mg Q12H PRN PO 09/26/17 15:45 (Morphine Inj) 2 mg Q3H PRN IV PUSH 09/26/17 16:00 09/28/17 04:44 (Wellbutrin Sr) 150 mg Q12HR PO 09/26/17 21:00 09/28/17 08:17 (Flexeril) 10 mg TID PO 09/26/17 18:00 09/28/17 08:17 (Protonix) 20 mg DAILY PO 09/27/17 09:00 09/28/17 08:17 Lactated Ringer's 1,000 ml @ 30 mls/hr Q24H PRN IV 09/27/17 15:45 09/30/17 15:44 Sodium Chloride 500 ml @ 30 mls/hr [id number] PRN IV 09/27/17 15:45 09/30/17 15:44 (Lopressor) 25 mg PRESS PIPE INSPECTOR PRN PO 09/27/17 15:45 09/30/17 15:44 (Betadine 5% Antisepsis Kit) 1 applic PRESS PIPE INSPECTOR PRN EACH NARE 09/27/17 15:45 09/30/17 15:44 (Chlorhexidine 2% Cloth) 3 pack PRESS PIPE INSPECTOR PRN TOPICAL 09/27/17 15:45 09/30/17 15:44 A/P Problem List: (1) Abdominal pain ICD Code: R10.9 - Unspecified abdominal pain (2) Transaminitis ICD Code: R74.0 - Nonspecific elevation of levels of transaminase and lactic acid dehydrogenase [LDH] Assessment and Plan 67-year-old female with history of urinary incontinence, anxiety, GERD, presents with a one-week history of abdominal pain. Recently diagnosed with UTI as outpatient, has been on ciprofloxacin 8 days. Transaminitis with Abdominal Pain: unclear etiology. Possibly reaction to ciprofloxacin. Also evidence of hepatic steatosis and possible duodenitis. -CT abdomen/pelvis reviewed, shows minimal distention of the second portion of the duodenum without wall thickening or inflammatory change; could relate to mild duodenitis, also shows hepatic steatosis -GB U/S shows mild dilatation of the pancreatic duct measuring 4 mm; no obstructing mass or stone -MRCP reviewed, unremarkable, no evidence of biliary obstructive disease, cholelithiasis, or choledocholithiasis -GI consulted, appreciated assistance -Liver w/up in progress, hepatitis panel negative -Plan for EGD today 09/28 -NPO for now -Monitor LFTs, slowly trending down Recent UTI: Has completed over 1 week treatment of ciprofloxacin -Repeat UA unremarkable -Discontinued antibiotics GERD: Chronic -Continue PPI Lumbago: Chronic -Continue Flexeril prn -IV morphine as needed Anxiety: Chronic -Continue patient's home meds including bupropion and Xanax as needed Hypokalemia: K 3.0, suspect secondary to decreased oral intake -give po KCl replacement -repeat labs with K 3.4, given additional po KCl replacement DVT prophylaxis: teds/SCDs; holding Lovenox with upcoming procedure Discharge Planning Discharge pending EGD today. Further disposition to follow. Await GI clearance. Maddie Reno PA-C Sep 28, 2017 8:37 am
--- NOTE | 2017-09-28 11:13 | GIPROC ---
[facility] [address] [facility]. [facility] [place], [address] EGD PROCEDURE REPORT EXAM DATE: 09/28/2017 PATIENT NAME: Gemma Marrero MR #: [id number] BIRTHDATE: 1950 ATTENDING: Allen Plata MD ORDER #: [id number] QUILL FIXER: Abundio Cevallos and Luz Marina Bautista STATUS: inpatient INDICATIONS: The patient is a 67 yr old female here for an EGD due to epigastric abdominal pain PROCEDURE PERFORMED: EGD, diagnostic MEDICATIONS: None and Per Anesthesia. TOPICAL ANESTHETIC: none CONSENT: The patient understands the risks and benefits of the procedure and understands that these risks include, but are not limited to: sedation, allergic reaction, infection, perforation and/or bleeding. Alternative means of evaluation and treatment include, among others: physical exam, x-rays, and/or surgical intervention. The patient elects to proceed with this endoscopic procedure. medical equipment was checked for proper function. Hand hygiene and appropriate measures for infection prevention was taken. After the risks, benefits and alternatives of the procedure were thoroughly explained, Informed consent was verified, confirmed and timeout was successfully executed by the treatment team. The patient was anesthetized with topical anesthesia and the Pentax [id number] endoscope was introduced through the mouth and advanced to the second portion of the duodenum. Retroflexion was performed and was normal The gastroscope was then slowly withdrawn and removed. ESOPHAGUS: There was LA Class A esophagitis noted. A small hiatal hernia was noted. STOMACH: There was erythematous moderate gastritis in the gastric antrum. Multiple biopsies were performed. DUODENUM: The duodenal mucosa appeared normal in the duodenal bulb and 2nd part duodenum. ADVERSE EVENTS: There were no complications. IMPRESSIONS: 1. There was LA Class A esophagitis noted 2. Small hiatal hernia 3. There was erythematous gastritis in the gastric antrum; multiple biopsies were performed 4. Normal duodenal mucosa in the duodenal bulb and 2nd part duodenum RECOMMENDATIONS: 1. Await biopsy results. Biopsy results will not be ready for 7-10 days. If you don't hear from us in two weeks, call our office for biopsy results. 2. Continue PPI PATIENT CONDITION: stable DISPOSITION: Observation REPEAT EXAM: NONE Allen Plata MD eSigned: Allen Plata MD 09/28/2017 11:13 AM cc: PATIENT NAME: Gemma Marrero MR#: [id number]
[2017-09-28] MEDS ORDERED: PROPOFOL 200 MG/20 ML AMP IV ONE (12:00)
[2017-09-28] MEDS ORDERED: LIDOCAINE HCL 1% PF 5 ML SYRINGE OTHER ONE (12:00)
--- NOTE | 2017-09-28 13:04 | EKG ---
Date Performed: 09/28/2017 Time Performed: 10:01:49 PTAGE: 67 years EKG: Sinus rhythm MARKED LEFT AXIS DEVIATION ABNORMAL ECG NO PREVIOUS TRACING DOCTOR: Jai Holm Interpretating Date/Time 09/28/2017 13:02:49
[2017-09-28 14:47] LABS: ALPHA-1-ANTITRYPSIN 150 mg/dL (100 - 190)
[2017-09-29] MEDS: MORPHINE SULFATE 4 MG/ML INJ IV PUSH PRN (01:51)
[2017-09-29 03:55] VITALS: BP 139/67; PULSE 91; RESP 17; TEMP 98.4; O2SAT 94
[2017-09-29 06:33] VITALS: BP 132/74; PULSE 88; RESP 18; TEMP 98.6
[2017-09-29 07:37] VITALS: PULSE 86
[2017-09-29 08:00] VITALS: BP 134/65; PULSE 99; RESP 16; TEMP 98.4; O2SAT 96
--- NOTE | 2017-09-29 08:01 | HHI.PR ---
Subjective Remarks Follow-up for transaminitis, abdominal pain, esophagitis/gastritis. The patient is ambulating her room this morning. She reports feeling much better today. She had some mild right-sided abdominal discomfort overnight, improved this morning. Denies any nausea or vomiting. She was able to tolerate dinner last night. Denies any fevers or chills. She wants to go home. Objective Vitals Vital Signs Date Time Temp Pulse Resp B/P (MAP) Pulse Ox O2 Delivery O2 Flow Rate FiO2 09/29/17 06:33 98.6 88 18 132/74 (93) 09/29/17 03:55 98.4 91 17 139/67 (91) 94 09/29/17 01:56 18 09/28/17 23:48 98.5 95 17 135/72 (93) 95 09/28/17 19:32 90 17 122/57 (78) 97 09/28/17 16:30 88 09/28/17 15:45 98.1 87 16 133/63 (86) 94 09/28/17 12:16 97 09/28/17 11:45 98.1 89 16 143/77 (99) 98 09/28/17 08:50 97 09/28/17 08:14 98.0 98 16 121/68 (85) 94 I/O 09/28/17 09/28/17 09/28/17 09/29/17 09/29/17 09/29/17 07:00 15:00 23:00 07:00 15:00 23:00 Intake Total 200 ml Balance 200 ml Other 200 ml # Voids 1 # Bowel Movements 1 Result Diagram: 09/28/17 0407 09/28/17 0407 Imaging Last Impressions Cholangiopancreatography MRI 09/27/17 0000 Signed Impressions: CONCLUSION: 1. Negative MRCP non contrast. 2. No evidence of biliary obstructive disease, cholelithiasis or choledocholit hiasis. Abdomen/Pelvis CT 09/26/17 1211 Signed Impressions: CONCLUSION: 1. Minimal distention of the second portion of the duodenum without wall thick ening or inflammatory change. This could relate to a mild duodenitis. Otherwise , no acute abnormality. 2. Hepatic steatosis. Gall Bladder Ultrasound 09/26/17 1113 Signed Impressions: CONCLUSION: 1. Mild dilatation of the pancreatic duct measuring 4 mm. No obstructing mass or stone observed. Consider further anatomical evaluation either utilizing CT s can or MRI. Objective Remarks GENERAL: Well-nourished, well-developed female patient in NAD. SKIN: Warm and dry. No rash. HEENT: Normocephalic. Atraumatic. Pupils equal and round. Mucous membranes pink and moist. CARDIOVASCULAR: Regular rate and rhythm. No murmur appreciated. RESPIRATORY: No accessory muscle use. Clear to auscultation. Breath sounds equal bilaterally. GASTROINTESTINAL: Abdomen soft, nondistended, nontender today. Normoactive bowel sounds x4. MUSCULOSKELETAL: No obvious deformities. Extremities without clubbing, cyanosis , or edema. NEUROLOGICAL: Awake and alert. No obvious cranial nerve deficits. Motor grossly within normal limits. Moving all extremities spontaneously. Normal speech. PSYCHIATRIC: Appropriate mood and affect; insight and judgment normal. Procedures 09/28/17-EGD showed esophagitis and gastritis, biopsies taken Medications and IVs Current Medications Medications (Trade) Dose Ordered Sig/Vicki Route Start Time Stop Time Status Last Admin (NS Flush) 2 ml UNSCH PRN IV FLUSH 09/26/17 15:45 (NS Flush) 2 ml BID IV FLUSH 09/26/17 21:00 09/29/17 08:35 (Zofran Odt) 4 mg Q6H PRN SL 09/26/17 15:45 09/27/17 23:50 (Lovenox Inj) 40 mg Q24H SQ 09/26/17 16:00 Future Hold 09/27/17 15:39 (Narcan Inj) 0.4 mg UNSCH PRN IV PUSH 09/26/17 15:45 (Senokot) 17.2 mg Q12H PRN PO 09/26/17 15:45 (Morphine Inj) 2 mg Q3H PRN IV PUSH 09/26/17 16:00 09/29/17 01:51 (Wellbutrin Sr) 150 mg Q12HR PO 09/26/17 21:00 09/29/17 08:35 (Flexeril) 10 mg TID PO 09/26/17 18:00 09/29/17 08:35 Lactated Ringer's 1,000 ml @ 30 mls/hr Q24H PRN IV 09/27/17 15:45 6/15/18 15:44 09/28/17 09:10 Sodium Chloride 500 ml @ 30 mls/hr [id number] PRN IV 09/27/17 15:45 09/30/17 15:44 (Lopressor) 25 mg HAND MOLDER PRN PO 09/27/17 15:45 09/30/17 15:44 (Betadine 5% Antisepsis Kit) 1 applic HAND MOLDER PRN EACH NARE 09/27/17 15:45 09/30/17 15:44 (Chlorhexidine 2% Cloth) 3 pack HAND MOLDER PRN TOPICAL 09/27/17 15:45 09/30/17 15:44 (Protonix) 40 mg DAILY PO 09/29/17 09:00 09/29/17 08:35 A/P Problem List: (1) Abdominal pain ICD Code: R10.9 - Unspecified abdominal pain (2) Transaminitis ICD Code: R74.0 - Nonspecific elevation of levels of transaminase and lactic acid dehydrogenase [LDH] Assessment and Plan 67-year-old female with history of urinary incontinence, anxiety, GERD, presents with a one-week history of abdominal pain. Recently diagnosed with UTI as outpatient, has been on ciprofloxacin 8 days. Transaminitis with Abdominal Pain: unclear etiology. Possibly reaction to ciprofloxacin. Also evidence of hepatic steatosis and possible duodenitis. -CT abdomen/pelvis reviewed, shows minimal distention of the second portion of the duodenum without wall thickening or inflammatory change; could relate to mild duodenitis, also shows hepatic steatosis -GB U/S shows mild dilatation of the pancreatic duct measuring 4 mm; no obstructing mass or stone -MRCP reviewed, unremarkable, no evidence of biliary obstructive disease, cholelithiasis, or choledocholithiasis -GI consulted, appreciated assistance -Liver w/up in progress, hepatitis panel negative -EGD 09/28 showed esophagitis, erythematous gastritis, biopsies taken -Monitor LFTs, slowly trending down -Diet advanced, patient tolerating well Recent UTI: Has completed over 1 week treatment of ciprofloxacin -Repeat UA unremarkable -Discontinued antibiotics GERD: Chronic -Continue PPI Lumbago: Chronic -Continue Flexeril prn -IV morphine as needed Anxiety: Chronic -Continue patient's home meds including bupropion and Xanax as needed Hypokalemia: K 3.0, suspect secondary to decreased oral intake -given po KCl replacement -repeat labs pending DVT prophylaxis: teds/SCDs; patient is ambulatory Discharge Planning Discharge pending GI clearance and repeat labs today. Maddie Reno PA-C Sep 29, 2017 8:01 am
[2017-09-29] MEDS: SODIUM CHLORIDE 0.9% FLUSH 10 ML FLUSH IV FLUSH SCH (08:35)
[2017-09-29] MEDS: buPROPion HCL 150 MG SUSTAINED RELEASE TAB PO SCH (08:35)
[2017-09-29] MEDS: CYCLOBENZAPRINE HCL 10 MG TAB PO SCH ×3 (08:35→13:27)
[2017-09-29] MEDS ORDERED: PANTOPRAZOLE SOD 40 MG DELAYED RELEASE TAB PO SCH (09:00)
[2017-09-29 10:36] LABS: ALBUMIN 3.2 GM/DL (3.4-5.0); ALT (GPT) 95 U/L (10-53); AST (GOT) 52 U/L (15-37); BICARBONATE 26.3 MEQ/L (21.0-32.0); BLOOD UREA NITROGEN 10 MG/DL (7-18); CALCIUM 9.2 MG/DL (8.5-10.1); CHLORIDE 104 MEQ/L (98-107); CREATININE 0.51 MG/DL (0.50-1.00); GLOMERULAR FILTRATION RATE 121 ML/MIN (>89); GLUCOSE,RANDOM 111 MG/DL (74-106); SODIUM (NA) 140 MEQ/L (136-145)
[2017-09-29 10:38] LABS: ALKALINE PHOSPHATASE 406 U/L (45-117); TOTAL BILIRUBIN ADULT 1.2 MG/DL (0.2-1.0); TOTAL PROTEIN 7.2 GM/DL (6.4-8.2)
[2017-09-29 13:39] LABS: SMOOTH MUSCLE TOTAL AUTOABS Positive 1:40 (Negative)
[2017-09-29 13:53] VITALS: BP 129/64; PULSE 96; RESP 16; TEMP 97.7; O2SAT 96
[2017-09-29] MEDS ORDERED: PANT40TA3 PO (15:10)
--- NOTE | 2017-09-29 15:11 | HHI.DCPOC ---
Discharge Care Plan Diagnosis: (1) Abdominal pain (2) Gastritis (3) Esophagitis (4) Elevated LFTs (5) Ciprofloxacin-induced hepatotoxicity Goals to Promote Your Health * To prevent worsening of your condition and complications * To maintain your health at the optimal level Directions to Meet Your Goals Take your medications as prescribed Follow your dietary instruction Follow activity as directed Keep your appointments as scheduled Take your immunizations and boosters as scheduled If your symptoms worsen call your PCP, if no PCP go to Urgent Care Center or Emergency Room Smoking is Dangerous to Your Health. Avoid second hand smoke Call the 24-hour hour crisis hotline for domestic abuse at Maddie Reno PA-C Sep 29, 2017 15:11
[2017-09-29] MEDS ORDERED: POTASSIUM CHLORIDE 20 MEQ CONTROLLED RELEASE TAB PO ONE (15:15)
--- NOTE | 2017-09-29 15:15 | HHI.DS ---
cc: Allen Plata MD Discharge Summary Admission Date Sep 26, 2017 at 4:47 pm Discharge Date: Sep 29, 2017 Admitting Diagnosis intractable abdominal pain, duodenitits, elevated liver enzymes. (1) Abdominal pain ICD Code: R10.9 - Unspecified abdominal pain Diagnosis: Principal (2) Transaminitis ICD Code: R74.0 - Nonspecific elevation of levels of transaminase and lactic acid dehydrogenase [LDH] Diagnosis: Principal (3) Esophagitis ICD Code: K20.9 - Esophagitis, unspecified Diagnosis: Secondary (4) Gastritis ICD Code: K29.70 - Gastritis, unspecified, without bleeding Diagnosis: Secondary (5) Elevated LFTs ICD Code: R94.5 - Abnormal results of liver function studies Diagnosis: Principal (6) Ciprofloxacin-induced hepatotoxicity ICD Code: K71.9 - Toxic liver disease, unspecified; T36.8X5A - Adverse effect of other systemic antibiotics, initial encounter Diagnosis: Principal Procedures 09/28/17-EGD showed esophagitis and gastritis, biopsies taken Brief History - From Admission FROM ADMISSION H&P: 67-year-old female with history of incontinence presents to the ER with abdominal pain that has been present for 1 week. Approximately 8 days ago she awoke with dark colored urine and thought she might have urinary tract infection. She did not have abdominal pain at that time. Following days she went and visited with her primary care physician who tested her urine and subsequently placed her on ciprofloxacin twice daily for 8 days. The day after taking Cipro she developed abdominal pain and nausea. She denies any vomiting. She continued to take ciprofloxacin and began to develop pain in her joints and tendons. The abdominal pain became worse and this morning when she awoke her decided she needed to be in the ER instead of following up with her primary care physician. Lab workup thus far shows elevated liver enzymes. Imaging shows mild dilated bile duct without evidence of gallstones. CT shows inflamed duodenum and hepatic steatosis. Patient denies any new medications aside from Cipro. CBC/BMP: 09/28/17 0407 09/29/17 0932 Significant Findings Laboratory Tests Test 09/26/17 20:50 09/26/17 21:02 09/27/17 06:36 09/27/17 17:07 Creatinine 0.47 MG/DL (0.50-1.00) Albumin 2.8 GM/DL (3.4-5.0) Alkaline Phosphatase 492 U/L (45-117) Aspartate Amino Transf (AST/SGOT) 74 U/L (15-37) Alanine Aminotransferase (ALT/SGPT) 128 U/L (10-53) Total Bilirubin 1.6 MG/DL (0.2-1.0) Potassium Level 3.0 MEQ/L (3.5-5.1) Test 09/28/17 04:07 09/29/17 09:32 Red Blood Count 3.99 MIL/MM3 (4.00-5.30) Platelet Count 504 TH/MM3 (150-450) Monocytes (%) (Auto) 11.5 % (0.0-8.0) Eosinophils (%) (Auto) 6.5 % (0.0-4.0) Monocytes # (Auto) 1.1 TH/MM3 (0-0.9) Eosinophils # (Auto) 0.6 TH/MM3 (0-0.4) Creatinine 0.45 MG/DL (0.50-1.00) Albumin 2.9 GM/DL (3.4-5.0) 3.2 GM/DL (3.4-5.0) Calcium Level 8.4 MG/DL (8.5-10.1) Alkaline Phosphatase 431 U/L (45-117) 406 U/L (45-117) Aspartate Amino Transf (AST/SGOT) 45 U/L (15-37) 52 U/L (15-37) Alanine Aminotransferase (ALT/SGPT) 104 U/L (10-53) 95 U/L (10-53) Total Bilirubin 1.3 MG/DL (0.2-1.0) 1.2 MG/DL (0.2-1.0) Potassium Level 3.4 MEQ/L (3.5-5.1) 3.2 MEQ/L (3.5-5.1) Random Glucose 111 MG/DL (74-106) Imaging Last Impressions Cholangiopancreatography MRI 09/27/17 0000 Signed Impressions: CONCLUSION: 1. Negative MRCP non contrast. 2. No evidence of biliary obstructive disease, cholelithiasis or choledocholit hiasis. Abdomen/Pelvis CT 09/26/17 1211 Signed Impressions: CONCLUSION: 1. Minimal distention of the second portion of the duodenum without wall thick ening or inflammatory change. This could relate to a mild duodenitis. Otherwise , no acute abnormality. 2. Hepatic steatosis. Gall Bladder Ultrasound 09/26/17 1113 Signed Impressions: CONCLUSION: 1. Mild dilatation of the pancreatic duct measuring 4 mm. No obstructing mass or stone observed. Consider further anatomical evaluation either utilizing CT s can or MRI. PE at Discharge GENERAL: Well-nourished, well-developed female patient in NAD. SKIN: Warm and dry. No rash. HEENT: Normocephalic. Atraumatic. Pupils equal and round. Mucous membranes pink and moist. CARDIOVASCULAR: Regular rate and rhythm. No murmur appreciated. RESPIRATORY: No accessory muscle use. Clear to auscultation. Breath sounds equal bilaterally. GASTROINTESTINAL: Abdomen soft, nondistended, nontender today. Normoactive bowel sounds x4. MUSCULOSKELETAL: No obvious deformities. Extremities without clubbing, cyanosis , or edema. NEUROLOGICAL: Awake and alert. No obvious cranial nerve deficits. Motor grossly within normal limits. Moving all extremities spontaneously. Normal speech. PSYCHIATRIC: Appropriate mood and affect; insight and judgment normal. Hospital Course 67-year-old female with history of urinary incontinence, anxiety, GERD, presents with a one-week history of abdominal pain. Recently diagnosed with UTI as outpatient, has been on ciprofloxacin 8 days. Transaminitis with Abdominal Pain: Suspect ciprofloxacin induced hepatotoxicity , however need to rule out other etiologies. Also evidence of hepatic steatosis and possible duodenitis. Hepatitis panel negative. CT abdomen/pelvis reviewed, shows minimal distention of the second portion of the duodenum without wall thickening or inflammatory change; could relate to mild duodenitis, also shows hepatic steatosis. GB U/S shows mild dilatation of the pancreatic duct measuring 4 mm; no obstructing mass or stone. MRCP reviewed, unremarkable, no evidence of biliary obstructive disease, cholelithiasis, or choledocholithiasis. GI consulted. EGD 09/28 showed esophagitis, erythematous gastritis, biopsies taken. Monitor LFTs, trending down throughout admission. Diet advanced, patient tolerating well. Discussed with GI Dr. Plata, cleared for discharge home on PPI, recommends repeat LFTs as outpatient and f/up with GI in 2 weeks. Discussed plan with the patient, verbalized understanding. She is happy to be going home. All questions answered. Patient instructed to avoid ciprofloxacin and levaquin antibiotics. Recent UTI: Has completed over 1 week treatment of ciprofloxacin. Repeat UA unremarkable. Discontinued antibiotics GERD: Chronic. Continue PPI Lumbago: Chronic. Continue Flexeril prn. IV morphine as needed. Stable. Anxiety: Chronic. Continue patient's home meds including bupropion and Xanax as needed Hypokalemia: K 3.0, suspect secondary to decreased oral intake. Given po KCl replacement. Pt Condition on Discharge: Stable Discharge Disposition: Discharge Home Discharge Time: > 30 minutes Discharge Instructions DIET: Follow Instructions for: Heart Healthy Diet Activities you can perform: Regular-No Restrictions Follow up Referrals: Gastroenterology - 2 Weeks @ [facility] PCP Follow-up - 1 Week with Lobo Hager DO New Orders: COMP MET PROF (CMP) - 1 Week New Medications: Pantoprazole (Pantoprazole) 40 Mg Tab 40 MG PO DAILY for esophagitis/gastritis for 30 Days, #30 TAB Continued Medications: Alendronate (Alendronate) 70 Mg Tab 70 MG PO Q7D for Osteporosis Treatment, #4 TAB 0 Refills Bupropion HCl ER 12 HR (Wellbutrin SR 12 HR) 150 Mg Tab 150 MG PO Q12HR for Control Depression, TAB 0 Refills Clotrimazole Vaginal (3 Day Vaginal) 2% Cream 1 APPL VAGINAL HS for Fungal Infection, #21 GM 0 Refills Cyclobenzaprine (Flexeril) 10 Mg Tab 10 MG PO TID for Muscle Spasm, #90 TAB 0 Refills Ondansetron (Ondansetron) 8 Mg Tab 8 MG PO TID for Nausea/Vomiting, TAB 0 Refills Sumatriptan (Sumatriptan) 100 Mg Tab 100 MG PO ONCE PRN for MIGRAINE HEADACHE, TAB 0 Refills If a satisfactory response has not been obtained at 2 hours, a second dose may be administered Triamcinolone Topical (Triamcinolone Topical) 0.1 % Oint 1 APPLIC TOPICAL BID for Inflammation, GM 0 Refills Discontinued Medications: Ciprofloxacin (Cipro) 500 Mg Tab 500 MG PO BID for Infection, TAB 0 Refills Diphenhydramine (Diphenhydramine) 25 Mg Cap 25 MG PO ONCE for Allergies, #1 CAP 0 Refills Diphenoxylate-Atropine (Lomotil) 2.5-0.025 Mg Tab 1 TAB PO DAILY PRN for DIARRHEA, TAB 0 Refills Omeprazole (Omeprazole) 20 Mg Tab 20 MG PO DAILY, #30 TAB 0 Refills Maddie Reno PA-C Sep 29, 2017 3:15 pm
[2017-09-29 19:54] LABS: CERULOPLASMIN 37 mg/dL (18-53)
[2017-09-30 19:51] LABS: ALK PHOS BONE (ISOENZYMES) 21 % (28-66); ALK PHOS INTESTINE (ISOENZYME) 0 % (1-24); ALK PHOS LIVER (ISOENZYME) 79 % (25-69); ALK PHOS PLACENTAL ISOENZYME 0 % (0)
[2017-10-01 03:52] LABS: ENDOMYSIAL AB SCREEN ND (NEGATIVE); ENDOMYSIAL AB TITER ND (<1:5)
[2017-10-02 03:53] LABS: MITOCHONDRIAL ABS LESS THAN 20.0 U (<=20.0)
== END 2017-09-29 17:21 | disposition home or self-care (01) ==
LOC: NEPC 07:11 → NEDA 16:47 → NEPFCDU 17:26
PROVIDERS: ADMIT Internal Medicine; ATTEND Internal Medicine
DX: K29.70 Gastritis, unspecified, without bleeding (principal); K29.80 Duodenitis without bleeding; K21.0 Gastro-esophageal reflux disease with esophagitis; K64.9 Unspecified hemorrhoids; K76.0 Fatty (change of) liver, not elsewhere classified; R74.0 Nonspecific elevation of levels of transaminase and lactic acid dehydrogenase [LDH]; K86.89 Other specified diseases of pancreas; T36.8X5A Adverse effect of other systemic antibiotics, initial encounter; K71.9 Toxic liver disease, unspecified; E87.6 Hypokalemia; R42 Dizziness and giddiness; N39.0 Urinary tract infection, site not specified; F17.210 Nicotine dependence, cigarettes, uncomplicated; F41.9 Anxiety disorder, unspecified; Z23 Encounter for immunization
CPT/HCPCS: 00731; 43239; 74177; 74181; 76377; 76705; 80053; 80074; 81001; 82103; 82105; 82390; 82728; 82784; 83516; 83520; 83540; 83550; 83690; 83735; 84080; 85025; 86038; 86255; 88305; 88312; 90732; 93005; 96361; 96365; 96366; 96372; 96375; 96376; 99285; G0378; J1650; J2270; J7030; J7040; J7120; P9612; Q9963; Q9967; J1956

== ENCOUNTER → 2017-10-06 | Outpatient (CLI) | payer BC, MEDICARE ==
[~2017-10-06] MED LIST changes: +ALEN1TAB48 PO; +BUPR150CR PO; -CITA-48 PO; +CLOT2CRE VAGINAL; +CYCL10TA PO; -DICL75 PO; -FOSA70TA PO; +ONDA8TAB7 PO; +PANT40TA3 PO; -ROBA750T3 PO; +SUMA100T2 PO; -TIZA4 PO; -TRAM50TA PO; +TRIAM.1%T TOPICAL; -XANA0.5T PO
[2017-10-06 09:03] LABS: ALBUMIN 3.4 GM/DL (3.4-5.0); AST (GOT) 27 U/L (15-37); BICARBONATE 28.6 MEQ/L (21.0-32.0); BLOOD UREA NITROGEN 15 MG/DL (7-18); CALCIUM 9.3 MG/DL (8.5-10.1); CHLORIDE 106 MEQ/L (98-107); CREATININE 0.79 MG/DL (0.50-1.00); GLOMERULAR FILTRATION RATE 73 ML/MIN (>89); GLUCOSE,FASTING 94 MG/DL (74-99); SODIUM (NA) 142 MEQ/L (136-145)
[2017-10-06 09:04] LABS: ALT (GPT) 37 U/L (10-53)
[2017-10-06 09:07] LABS: ALKALINE PHOSPHATASE 210 U/L (45-117); TOTAL BILIRUBIN ADULT 0.7 MG/DL (0.2-1.0); TOTAL PROTEIN 7.5 GM/DL (6.4-8.2)
== END ==
LOC: CLAB 08:06
PROVIDERS: ATTEND Physician Assistant
DX: K71.9 Toxic liver disease, unspecified (principal)
CPT/HCPCS: 36415; 80053